=== PATIENT | male | born 1955 | race Two or more races ===

== ENCOUNTER → 2020-01-04 | Outpatient (CLI) | payer OTHER ==
[~2020-01-04] MED LIST: CONTRAST GIVEN. MC PRN; IOHEXOL 240 MG/ML 50ML VIAL. PO ONE; IOHEXOL 300 MG/ML 100ML VIAL. PO ONE
--- NOTE | 2020-01-04 10:34 | RAD ---
EXAM: CT ABDOMEN/PELVIS WITH CONTRAST. HISTORY: Suprapubic and low back pain. TECHNIQUE: Computed tomography of the abdomen and pelvis was performed after the intravenous administration of iodinated contrast. One or more of the following individualized dose reduction techniques were utilized for this examination: 1. Automated exposure control. 2. Adjustment of the mA and/or kV according to patient size. 3. Use of iterative reconstruction technique. COMPARISON: None. FINDINGS: Lung windows through the visualized portions of the bases reveal small nodules on images one and 4 in the right upper and right middle lobes measuring 5 mm or less. There are atherosclerotic calcifications of the coronary arteries. Bone windows reveal no suspicious lesions. Hypoattenuation of the hepatic parenchyma indicates moderate diffuse hepatic steatosis. Small hypoattenuating hepatic lesions measure up to 11 x 9 mm in segment IVb and likely reflect benign cysts. The spleen, adrenal glands, pancreas and gallbladder are unremarkable. There are no pathologically enlarged lymph nodes. Subcentimeter bilateral renal cysts appear benign. A calculus in the left interpolar region measures 3 mm. There are no ureteral calculi. The prostate is only mildly enlarged for patient age, measuring 4.6 x 3.1 cm transaxially. There is no focal bladder wall thickening. Sigmoid diverticulosis is mild. The appendix is not inflamed. There is no small bowel obstruction. A small fat-containing left inguinal hernia is suspected. There is also a small fat-containing umbilical hernia. IMPRESSION: 1. Mild benign prostatic hypertrophy for patient age. No cause for acute pain is identified. 2. Small left inguinal and umbilical hernias contain only fat. 3. Moderate diffuse hepatic steatosis. 4. 3 mm nonobstructing left renal calculus. 5. Small nodules in the right lung base are likely benign measuring <6 mm and require no further follow-up in the absence of strong risk factors. If there are strong risk factors, follow-up could be performed in one year if long-term stability is not already known. Electronically signed by: Bethany Quinones MD (01/04/2020 10:31 AM) [id number]
== END | disposition home or self-care (01) ==
LOC: CT 07:29
PROVIDERS: ATTEND Family Medicine
DX: K76.0 Fatty (change of) liver, not elsewhere classified (principal); K57.30 Diverticulosis of large intestine without perforation or abscess without bleeding; K42.9 Umbilical hernia without obstruction or gangrene; I70.0 Atherosclerosis of aorta; R91.8 Other nonspecific abnormal finding of lung field; I70.8 Atherosclerosis of other arteries; N28.1 Cyst of kidney, acquired; N40.0 Benign prostatic hyperplasia without lower urinary tract symptoms
CPT/HCPCS: 74177; Q9966; Q9967

== ENCOUNTER 2020-02-21 17:45 | Emergency (ER) | payer SELFPAY ==
[~2020-02-21] VITALS: Ht 170.2 cm; Wt 94.0 kg
[2020-02-21 19:04] LABS: BASO % 0 % (0-3); EOS # 0.1 x10^3/uL (0.0-0.7); EOS % 2 % (0-3); HEMATOCRIT 39.2 % (39.0-53.0); LYMPH # 1.4 x10^3/uL (1.0-4.8); LYMPH % 25 % (24-48); MEAN CORPUSCULAR HEMOGLOBIN 33 pg (25-35); MEAN CORPUSCULAR HGB CONC 36 g/dL (31-37); MEAN CORPUSCULAR VOLUME 93 fL (79-100); MONO # 0.5 x10^3/uL (0.0-1.1); MONO % 8 % (0-9); NEUT # 3.6 x10^3/uL (1.8-7.7); NEUT % 65 % (31-73); PLATELET COUNT 151 x10^3/uL (140-400); RED BLOOD COUNT 4.22 x10^6/uL (4.30-5.70); RED CELL DISTRIBUTION WIDTH 13.5 % (11.5-14.5); WHITE BLOOD COUNT 5.6 x10^3/uL (4.0-11.0)
[2020-02-21 19:09] LABS: BILIRUBIN,URINE NEGATIVE (NEG); CLARITY,URINE CLEAR; COLOR,URINE YELLOW; NITRITE,URINE NEGATIVE (NEG); PROTEIN,URINE NEGATIVE (NEG-TRACE); UROBILINOGEN,URINE 0.2 mg/dL (0.2 mg/dL)
[2020-02-21 19:14] LABS: PROTHROMBIN TIME PATIENT 12.3 SEC (11.7-14.0)
[2020-02-21 19:16] LABS: CREATININE 2.8 mg/dL (0.7-1.3); POTASSIUM 3.1 mmol/L (3.5-5.1)
--- NOTE | 2020-02-21 19:17 | RAD ---
PORTABLE CHEST 1V History: Reason: fever 6 / Spl. Instructions: / History: Comparison: None. Findings: No consolidation or pleural effusion. Normal heart size. No pneumothorax. Impression: 1. No acute cardiopulmonary process. Electronically signed by: Barrett Ruiz DO (02/21/2020 7:14 PM) [facility] [place]
[2020-02-21 19:20] LABS: ALBUMIN 3.5 g/dL (3.4-5.0); ALBUMIN/GLOBULIN RATIO 0.9 (1.0-1.7); TOTAL BILIRUBIN 0.5 mg/dL (0.2-1.0); TOTAL PROTEIN 7.2 g/dL (6.4-8.2)
[2020-02-21 19:21] LABS: SQUAMOUS EPITHELIAL CELL,UR OCC /LPF
[2020-02-21 19:22] LABS: BACTERIA,URINE 0 /HPF (0-FEW); RBC,URINE 0 /HPF (0-2)
--- NOTE | 2020-02-21 20:23 | PHYS DOC ---
Past Medical History Past Medical History: Hypertension, Hypothyroid Additional Past Medical Histor: BPH?, PREDIABETES (KEMAR WHITMAN APRN) Past Surgical History: No Surgical History (KEMAR WHITMAN APRN) Smoking Status: Never Smoker Alcohol Use: None (KEMAR WHITMAN APRN) General Adult EDM: Chief Complaint: FEVER HPI: HPI: Patient is a 64 year old male with history of hypertension, prediabetes, who presents to the ED today complaining of fevers. Patient reports on Tuesday this week he was diagnosed with a UTI. He states he was started on Bactrim. He states since yesterday he has noted his had fevers with temperatures as high as 103. He states he was tested for COVID19 today but he does not have results. Denies any coughing, denies any congestion, denies any chest pain or shortness of breath. Reports chronic low back pain. (KEMAR WHITMAN APRN) Review of Systems: Review of Systems: Constitutional: Reports fever Eyes: Denies change in visual acuity. [] HENT: Denies nasal congestion or sore throat. [] Respiratory: Denies cough or shortness of breath. [] Cardiovascular: Denies chest pain or edema. [] GI: Denies abdominal pain, nausea, vomiting, bloody stools or diarrhea. [] : Reports on treatment for UTI Musculoskeletal: Denies back pain or joint pain. [] Integument: Denies rash. [] Neurologic: Denies headache, focal weakness or sensory changes. [] Psychiatric: Denies depression or anxiety. [] (KEMAR WHITMAN APRN) Heart Score: Risk Factors: Risk Factors: DM, Current or recent (<one month) smoker, HTN, HLP, family history of CAD, obesity. Risk Scores: Score 0 - 3: 2.5% MACE over next 6 weeks - Discharge Home Score 4 - 6: 20.3% MACE over next 6 weeks - Admit for Clinical Observation Score 7 - 10: 72.7% MACE over next 6 weeks - Early Invasive Strategies (KEMAR WHITMAN APRN) Allergies: Allergies: Allergies Coded Allergies Type Severity Reaction Last Updated Verified No Known Drug Allergies 01/04/20 No (KEMAR WHITMAN APRN) Physical Exam: PE: Constitutional: Well developed, well nourished, no acute distress, non-toxic appearance. [] HENT: Normocephalic, atraumatic, bilateral external ears normal, oropharynx moist, no oral exudates, nose normal. [] Eyes: PERRLA, EOMI, conjunctiva normal, no discharge. [] Neck: Normal range of motion, no tenderness, supple, no stridor. [] Cardiovascular:Heart rate regular rhythm, no murmur [] Lungs & Thorax: Bilateral breath sounds clear to auscultation [] Abdomen: Bowel sounds normal, soft, no tenderness, no masses, no pulsatile masses. [] Skin: Warm, dry, no erythema, no rash. [] Back: No tenderness, no CVA tenderness. [] Extremities: No tenderness, no cyanosis, no clubbing, ROM intact, no edema. [] Neurologic: Alert and oriented X 3, normal motor function, normal sensory function, no focal deficits noted. [] Psychologic: Affect normal, judgement normal, mood normal. [] (KEMAR WHITMAN APRN) Current Patient Data: Labs: Laboratory Tests Test 02/21/20 18:40 02/21/20 18:50 Urine Collection Type Void Urine Color Yellow Urine Clarity Clear Urine pH 5.0 (<5.0-8.0) Urine Specific [place] 1.010 (1.000-1.030) Urine Protein Negative mg/dL (NEG-TRACE) Urine Glucose (UA) Negative mg/dL (NEG) Urine Ketones (Stick) Negative mg/dL (NEG) Urine Blood Negative (NEG) Urine Nitrite Negative (NEG) Urine Bilirubin Negative (NEG) Urine Urobilinogen Dipstick 0.2 mg/dL (0.2 mg/dL) Urine Leukocyte Esterase Negative (NEG) Urine RBC 0 /HPF (0-2) Urine WBC 1-4 /HPF (0-4) Urine Squamous Epithelial Cells Occ /LPF Urine Bacteria 0 /HPF (0-FEW) White Blood Count 5.6 x10^3/uL (4.0-11.0) Red Blood Count 4.22 x10^6/uL (4.30-5.70) L Hemoglobin 14.0 g/dL (13.0-17.5) Hematocrit 39.2 % (39.0-53.0) Mean Corpuscular Volume 93 fL (79-100) Mean Corpuscular Hemoglobin 33 pg (25-35) Mean Corpuscular Hemoglobin Concent 36 g/dL (31-37) Red Cell Distribution Width 13.5 % (11.5-14.5) Platelet Count 151 x10^3/uL (140-400) Neutrophils (%) (Auto) 65 % (31-73) Lymphocytes (%) (Auto) 25 % (24-48) Monocytes (%) (Auto) 8 % (0-9) Eosinophils (%) (Auto) 2 % (0-3) Basophils (%) (Auto) 0 % (0-3) Neutrophils # (Auto) 3.6 x10^3/uL (1.8-7.7) Lymphocytes # (Auto) 1.4 x10^3/uL (1.0-4.8) Monocytes # (Auto) 0.5 x10^3/uL (0.0-1.1) Eosinophils # (Auto) 0.1 x10^3/uL (0.0-0.7) Basophils # (Auto) 0.0 x10^3/uL (0.0-0.2) Prothrombin Time 12.3 SEC (11.7-14.0) Prothrombin Time INR 1.0 (0.8-1.1) Activated Partial Thromboplast Time 41 SEC (24-38) H Sodium Level 138 mmol/L (136-145) Potassium Level 3.1 mmol/L (3.5-5.1) L Chloride Level 101 mmol/L (98-107) Carbon Dioxide Level 23 mmol/L (21-32) Anion Gap 14 (6-14) Blood Urea Nitrogen 25 mg/dL (8-26) Creatinine 2.8 mg/dL (0.7-1.3) H Estimated GFR (Cockcroft-Gault) 23.0 BUN/Creatinine Ratio 9 (6-20) Glucose Level 110 mg/dL (70-99) H Lactic Acid Level 1.0 mmol/L (0.4-2.0) Calcium Level 8.0 mg/dL (8.5-10.1) L Total Bilirubin 0.5 mg/dL (0.2-1.0) Aspartate Amino Transferase (AST) 52 U/L (15-37) H Alanine Aminotransferase (ALT) 71 U/L (16-63) H Alkaline Phosphatase 71 U/L (46-116) Total Protein 7.2 g/dL (6.4-8.2) Albumin 3.5 g/dL (3.4-5.0) Albumin/Globulin Ratio 0.9 (1.0-1.7) L Procalcitonin 0.13 ng/mL (0.00-0.10) H Laboratory Tests 02/21/20 18:50 Laboratory Tests 02/21/20 18:50 Vital Signs: Vital Signs Date Time Temp Pulse Resp B/P (MAP) Pulse Ox O2 Delivery O2 Flow Rate FiO2 02/21/20 18:00 98.3 87 18 124/75 (91) 94 Room Air 98.3 (KEMAR WHITMAN APRN) EKG: EKG: [] (KEMAR WHITMAN APRN) Radiology/Procedures: Radiology/Procedures: [] (KEMAR WHITMAN APRN) Course & Med Decision Making: Course & Med Decision Making Pertinent Labs and Imaging studies reviewed. (See chart for details) This is a 64-year-old male patient presenting to the ED today complaining of fevers. Symptoms began yesterday. Patient was started on Bactrim 4 days ago for UTI which he is still taking. Patient is afebrile in the ED with temperature of 98.3. Urine analysis is negative for infection. CBC with a normal WBC. CMP with potassium of 3.1, creatinine of 2.8, BUN of 25. Patient denies any previous history of renal failure. I requested he gets admitted to the hospital. He refused and signed out AMA. I expressed to patient the dangers of signing AMA including and disability. He proceeded to sign out AMA. Patient is primarily Croatian-speaking but seem to understand some Romanian and the son is also interpreting. (KEMAR WHITMAN APRN) Course & Med Decision Making I have reviewed the PA/SPORTS RECRUITER's note and Plan of Care. I was available for co nsultation as needed during the patient's visit in the emergency department. I agree with the clinical impression, plans and disposition. (GILDA MURILLO MD) [place] Disclaimer: Dragon Disclaimer: This electronic medical record was generated, in whole or in part, using a voice recognition dictation system. (KEMAR WHITMAN APRN) Departure Departure Impression: Primary Impression: Fever Qualified Codes: R50.9 - Fever, unspecified Additional Impression: ARF (acute renal failure) Qualified Codes: N17.9 - Acute kidney failure, unspecified Disposition: 07 AGAINST MEDICAL ADVICE Condition: STABLE Referrals: UNKNOWN PCP NAME (PCP) Justicifation of Admission Dx: Justifications for Admission: Justification of Admission Dx: N/A (KEMAR WHITMAN APRN) KEMAR WHITMAN APRN Feb 21, 2020 20:23 GILDA MURILLO MD Feb 21, 2020 21:56
[2020-02-21 20:25] VITALS: BP 113/71
--- NOTE | 2020-02-22 15:26 | NUR ---
IP: Informed pt of positive COVID tests results through interpretation via son. Pt does not speak Maltese. All questions answered. Both verbalized understanding.
== END 2020-02-21 20:30 | disposition left against medical advice (07) ==
LOC: ER 17:45
DX: U07.1 COVID-19 (principal); N17.9 Acute kidney failure, unspecified; R50.9 Fever, unspecified; I10 Essential (primary) hypertension; E03.9 Hypothyroidism, unspecified
CPT/HCPCS: 36415; 71045; 80053; 81001; 83605; 84145; 85025; 85610; 85730; 87040; 99284; C9803; U0003

== ENCOUNTER → 2021-09-25 | Outpatient (CLI) | payer OTHER ==
[~2021-09-25] MED LIST changes: -CONTRAST GIVEN. MC PRN; +GADOTERATE 7.5 MMOL/15ML VIAL. IVP ONE; -IOHEXOL 240 MG/ML 50ML VIAL. PO ONE; -IOHEXOL 300 MG/ML 100ML VIAL. PO ONE
--- NOTE | 2021-09-25 11:43 | RAD ---
EXAM: Brain MRI with and without contrast. HISTORY: Headaches. TECHNIQUE: Multiplanar, multisequence magnetic resonance imaging of the brain was performed prior to and following the administration of intravenous contrast. COMPARISON: None. FINDINGS: There is no restricted diffusion to suggest acute or subacute infarction. There is no susce ptibility artifact to suggest hemorrhage. There is no mass effect or midline shift. There is no hydro cephalus. There are a few scattered focal areas of signal change within the cerebral white matter, th e largest of which is seen within the left parietal lobe. This is most commonly due to chronic small vessel disease in a patient of this age. The orbits are unremarkable. There is paranasal sinus mucosal thickening. There are bilateral shlomo bullosa. There is no suspicious enhancing lesion. There is no suspicious calvarial lesion. The mastoi d air cells are clear. There are normal flow voids within the cerebral vessels. IMPRESSION: 1. No acute intracranial finding. 2. Scattered foci of signal change within the cerebral white matter, most commonly due to chronic sma ll vessel disease. The possibility of superimposed changes due to chronic migraine headaches can also be considered given the patient history. Electronically signed by: Pamela Saeed MD (09/25/2021 11:41 AM) [facility]
== END ==
LOC: MRI 10:07
PROVIDERS: ATTEND Nurse Practitioner Primary Care
DX: R90.82 White matter disease, unspecified (principal); J34.3 Hypertrophy of nasal turbinates; J34.89 Other specified disorders of nose and nasal sinuses
CPT/HCPCS: 70553; A9575